=== PATIENT | male | born 1995 | race Caucasian/White ===

== ENCOUNTER → 2023-02-15 | Emergency (ER) | payer BC ==
[~2023-02-15] VITALS: Ht 175.3 cm; Wt 90.7 kg
[~2023-02-15] MED LIST: BUSPIRONE HCL7.5 MG
== END | disposition left against medical advice (07) ==
LOC: ER 12:57
DX: Z53.21 Procedure and treatment not carried out due to patient leaving prior to being seen by health care provider (principal)